=== PATIENT | male | born 1970 | race African-American/Black ===

== ENCOUNTER 2019-01-22 19:02 | Emergency (ER) | payer OTHER ==
[~2019-01-22] VITALS: Ht 198.1 cm; Wt 85.7 kg
[~2019-01-22 19:02] MED LIST: ACETAMINOPHEN325 M1 PO; GLUCOPHAGE500 MG PO; GLYBURIDE 5 MG T5 M1 PO; TEST N'GO1 EACH MC
[2019-01-22] MEDS ORDERED: LEVEMIR SUBQ ×2 (20:20→22:15)
[2019-01-22 20:52] LABS: BASOPHILS 0.3 % (0.0-2.0); EOSINOPHILS 1.6 % (0.0-3.0); HEMATOCRIT 44.3 % (42.0-52.0); HEMOGLOBIN 15.3 gm/dL (14.0-18.0); LYMPHOCYTES 33.4 % (24.0-44.0); MCHC 34.5 g/dL (28.0-37.0); MCV 86.9 fL (80.0-100.0); MONOCYTES 5.9 % (1.0-8.0); PLATELET COUNT 303 thou/uL (150-400); POLYS 58.8 % (36.0-66.0); RDW 13.4 % (10.5-14.5); WBC 6.8 thou/uL (4.0-11.0)
[2019-01-22 21:07] LABS: CALCIUM 9.6 mg/dL (8.5-10.1); CREATININE 1.2 mg/dL (0.7-1.3); POTASSIUM 5.5 mmol/L (3.5-5.1)
[2019-01-22] MEDS ORDERED: GLYBURIDE 5 MG T5 M1 PO (22:15)
[2019-01-22 22:39] VITALS: BP 129/84
== END 2019-01-22 22:46 | disposition home or self-care (01) ==
LOC: ER 19:02
PROVIDERS: Emergency Medicine
DX: E11.65 Type 2 diabetes mellitus with hyperglycemia (principal)